=== PATIENT | female | born 1975 | race African-American/Black ===

== ENCOUNTER 2018-05-22 20:12 | Emergency (ER) | payer OTHER ==
[2018-05-22 20:26] VITALS: BMI 40.0
--- NOTE | 2018-05-22 20:27 | PDOC ---
Rapid Medical Evaluation Chief Complaint: Chest Pain Time Seen by Provider: 05/22/18 20:21 Medical Evaluation: Allergies Allergy/AdvReac Type Severity Reaction Status Date / Time codeine Allergy Difficulty Verified 11/10/15 19:34 Breathing 05/22/18 20:21 c/o chest pain and palpitations, dizziness prior to arrival. Pe: patient alert ox3/ breath sounds clear, A: chest pain P: labs ekg chest xray patient to the ER for further management of care, Discharge Disposition - Diagnosis Chest pain Qualifiers: Chest pain type: unspecified Qualified Code(s): R07.9 - Chest pain, unspecified - Referrals - Patient Instructions - Post Discharge Activity
[2018-05-22 20:56] LABS: BASO % 0.6 % (0-2.0); EOS % 1.5 % (0-4.5); HEMATOCRIT 43.2 % (32.4-45.2); HEMOGLOBIN 14.7 GM/dL (10.7-15.3); LYMPH % 36.4 % (8-40); MCH 31.2 pg (25.7-33.7); MEAN CELL VOLUME 91.6 fl (80-96); MEAN PLT VOLUME 8.6 fl (7.5-11.1); MONO % 5.4 % (3.8-10.2); NEUT % 56.1 % (42.8-82.8); PLATELET COUNT 299 K/MM3 (134-434); RBC 4.71 M/mm3 (3.60-5.2); RDW 15.2 % (11.6-15.6); WHITE BLOOD COUNT 6.8 K/mm3 (4.0-10.0)
[2018-05-22 20:57] LABS: URINE APPEARANCE CLEAR; URINE BILIRUBIN NEGATIVE (<2.0 mg/dL); URINE COLOR COLORLESS; URINE GLUCOSE (UA) NEGATIVE (NEGATIVE); URINE KETONE NEGATIVE (NEGATIVE); URINE LEUK ESTERASE NEGATIVE (NEGATIVE); URINE NITRITE NEGATIVE (NEGATIVE); URINE PROTEIN NEGATIVE (NEGATIVE); URINE UROBILINOGEN NEGATIVE mg/dL (0.2-1.0)
[2018-05-22 21:08] LABS: EPI CELLS RARE /HPF (FEW); URINE BACTERIA RARE /hpf (NONE SEEN)
--- NOTE | 2018-05-22 21:11 | PDOC ---
History of Present Illness - General Chief Complaint: Chest Pain Stated Complaint: CHEST PAIN Time Seen by Provider: 05/22/18 20:21 History Source: Patient Exam Limitations: No Limitations - History of Present Illness Initial Comments: 05/22/18 21:24 42 year old female with PMH pre-diabetes presented to ED for palpitations and chest pain x1 hour. Pt stated she was sitting down in a chair looking at instagram, saw a funny picture, then felt her heart race and chest pain. She stated her pain is substernal, pressure, nonradiating, no alleviating or aggravating factors. She admitted to shortness of breath. She stated her symptoms have improved but not resolved since their initial presentation. Allergies: Codeine Past History - Past Medical History Allergies/Adverse Reactions: Allergies Allergy/AdvReac Type Severity Reaction Status Date / Time codeine Allergy Difficulty Verified 11/10/15 19:34 Breathing Home Medications: Ambulatory Orders Potassium Chloride 40 meq PO BID #6 tablet.er 05/23/18 COPD: No - Immunization History Immunization Up to Date: No - Suicide/Smoking/Psychosocial Hx Smoking History: Never smoked Have you smoked in the past 12 months: No Information on smoking cessation initiated: No Hx Alcohol Use: No Drug/Substance Use Hx: No Substance Use Type: None Review of Systems - Review of Systems Able to Perform ROS?: Yes Comments:: 05/22/18 21:25 General: denied fever, chills, generalized weakness. HEENT: denied sore throat, rhinorrhea, ear pain. Heart: admitted to chest pain, palpitations. denied syncope, diaphoresis. Respiratory: admitted to shortness of breath. denied cough, sputum production, hemoptysis. Abdomen: denied abdominal pain, nausea, vomiting, diarrhea, constipation, blood in stool. : denied dysuria, increased urinary frequency, hematuria, urinary incontinence , flank pain. Back: denied back pain. Musculoskeletal: denied joint pain, muscle pain, joint swelling. Neurological: denied headache, dizziness, numbness, tingling, weakness. Skin: denied rash, laceration, abrasion. *Physical Exam - Vital Signs Last Vital Signs Temp Pulse Resp BP Pulse Ox 97.7 F 90 98 H 103/86 100 05/22/18 20:23 05/22/18 20:23 05/22/18 20:23 05/22/18 20:23 05/22/18 20:23 - Physical Exam Comments: 05/22/18 21:26 Constitutional: Well-nourished, Well-developed, appearing stated age. obese. HEENT: head is normocephalic, atraumatic. EOMI. PERRLA. Neck: supple. Full ROM. Heart: regular rhythm. no murmurs, rubs or gallops. Lungs: clear to auscultation bilaterally. no crackles, rhonchi or wheezing. no stridor. Abdomen: soft, nontender. normal bowel sounds. no rebound, guarding, masses. Extremities: peripheral pulses intact. no lower extremity edema. Neurological: CN 2-12 grossly intact. moves all four extremities. Psych: awake, alert, oriented x3. follows commands. answers questions appropriately. Moderate Sedation - Procedure Monitoring Vital Signs: Procedure Monitoring Vital Signs Temperature 97.7 F 05/22/18 20:23 Pulse Rate 90 05/22/18 20:23 Respiratory Rate 98 H 05/22/18 20:23 Blood Pressure 103/86 05/22/18 20:23 O2 Sat by Pulse Oximetry (%) 100 05/22/18 20:23 ED Treatment Course - LABORATORY CBC & Chemistry Diagram: 05/22/18 20:40 05/22/18 23:20 - ADDITIONAL ORDERS Additional order review: Laboratory Results 05/22/18 20:36 Urine Color Colorless Urine Appearance Clear Urine pH 8.0 D Ur Specific Carlotta 1.003 L Urine Protein Negative Urine Glucose (UA) Negative Urine Ketones Negative Urine Blood 1+ H Urine Nitrite Negative Urine Bilirubin Negative Urine Urobilinogen Negative Ur Leukocyte Esterase Negative Urine WBC (Auto) 1 Urine RBC (Auto) None Ur Epithelial Cells Rare Urine Bacteria Rare 05/22/18 20:40 RBC 4.71 MCV 91.6 MCHC 34.0 RDW 15.2 MPV 8.6 Neutrophils % 56.1 Lymphocytes % 36.4 Monocytes % 5.4 Eosinophils % 1.5 Basophils % 0.6 Medical Decision Making - Medical Decision Making 05/22/18 21:27 42 year old female with above PMH presented to ED for chest pain/palpitations associated with shortness of breath. Initial Vital Signs Temp Pulse Resp BP Pulse Ox 97.7 F 90 98 H 103/86 100 05/22/18 20:23 05/22/18 20:23 05/22/18 20:23 05/22/18 20:23 05/22/18 20:23 Afebrile. No tachycardia. Respirations error in charting. Mild hypotension. No hypoxia on room air. Labs ordered: CBC, CMP, trop, mag, phos, TSH, serum Imaging ordered: CXR Medications ordered: normal saline bolus 1000 cc EKG performed at 2018: rate 90, regular rhythm, normal axis, 2 PVCs, QTc 511, no acute ST changes. EKG performed 11/01/2002: rate 96, regular rhythm, normal axis, no PVCs, QTc 419 , RSR in V2, no acute ST changes. CXR report: no acute lung disease. CBC WBC 6.8 K/mm3 (4.0-10.0) 05/22/18 20:40 RBC 4.71 M/mm3 (3.60-5.2) 05/22/18 20:40 Hgb 14.7 GM/dL (10.7-15.3) 05/22/18 20:40 Hct 43.2 % (32.4-45.2) 05/22/18 20:40 MCV 91.6 fl (80-96) 05/22/18 20:40 MCH 31.2 pg (25.7-33.7) 05/22/18 20:40 MCHC 34.0 g/dl (32.0-36.0) 05/22/18 20:40 RDW 15.2 % (11.6-15.6) 05/22/18 20:40 Plt Count 299 K/MM3 (134-434) 05/22/18 20:40 MPV 8.6 fl (7.5-11.1) 05/22/18 20:40 Absolute Neuts (auto) 3.8 K/mm3 (1.5-8.0) 05/22/18 20:40 Neutrophils % 56.1 % (42.8-82.8) 05/22/18 20:40 Lymphocytes % 36.4 % (8-40) 05/22/18 20:40 Monocytes % 5.4 % (3.8-10.2) 05/22/18 20:40 Eosinophils % 1.5 % (0-4.5) 05/22/18 20:40 Basophils % 0.6 % (0-2.0) 05/22/18 20:40 Nucleated RBC % 0 % (0-0) 05/22/18 20:40 No leukocytosis. No anemia. Urine Test Results Urine Color Colorless 05/22/18 20:36 Urine Appearance Clear 05/22/18 20:36 Urine pH 8.0 (5.0-8.0) D 05/22/18 20:36 Ur Specific Carlotta 1.003 (1.010-1.035) L 05/22/18 20:36 Urine Protein Negative (NEGATIVE) 05/22/18 20:36 Urine Glucose (UA) Negative (NEGATIVE) 05/22/18 20:36 Urine Ketones Negative (NEGATIVE) 05/22/18 20:36 Urine Blood 1+ (NEGATIVE) H 05/22/18 20:36 Urine Nitrite Negative (NEGATIVE) 05/22/18 20:36 Urine Bilirubin Negative (<2.0 mg/dL) 05/22/18 20:36 Ur Leukocyte Esterase Negative (NEGATIVE) 05/22/18 20:36 Ur Epithelial Cells Rare /HPF (FEW) 05/22/18 20:36 Urine Bacteria Rare /hpf (NONE SEEN) 05/22/18 20:36 No UTI. 05/22/18 21:39 Lab reported CMP hemolyzed, redraw sent to lab. 05/22/18 21:51 Vital Signs Temperature 97.7 F 05/22/18 20:23 Pulse Rate 85 05/22/18 21:41 Respiratory Rate 19 05/22/18 21:41 Blood Pressure 149/107 H 05/22/18 21:41 O2 Sat by Pulse Oximetry (%) 100 05/22/18 21:41 Vital signs were repeated with no treatment. No tachycardia. No tachypnea. Mild hypertension. No hypoxia on room air. 05/22/18 22:05 CMP Sodium 140 mmol/L (136-145) 05/22/18 21:19 Potassium 2.8 mmol/L (3.5-5.1) L* 05/22/18 21:19 Chloride 104 mmol/L (98-107) 05/22/18 21:19 Carbon Dioxide 26 mmol/L (21-32) 05/22/18 21:19 Anion Gap 10 MMOL/L (8-16) 05/22/18 21:19 BUN 15 mg/dL (7-18) 05/22/18 21:19 Creatinine 0.7 mg/dL (0.55-1.3) 05/22/18 21:19 Creat Clearance w eGFR > 60 (>60) 05/22/18 21:19 Random Glucose 88 mg/dL (74-106) 05/22/18 21:19 Calcium 8.4 mg/dL (8.5-10.1) L 05/22/18 21:19 Phosphorus 3.3 mg/dL (2.5-4.9) 05/22/18 21:19 Magnesium 2.2 mg/dL (1.8-2.4) 05/22/18 21:19 Total Bilirubin 0.4 mg/dL (0.2-1) 05/22/18 21: AST 19 U/L (15-37) 05/22/18 21: ALT 28 U/L (13-61) 05/22/18 21:19 Alkaline Phosphatase 113 U/L (45-117) 05/22/18 21:19 Creatine Kinase Cancelled 05/22/18 20:40 Troponin I < 0.02 ng/ml (0.00-0.05) 05/22/18 21:19 Total Protein 7.8 g/dl (6.4-8.2) 05/22/18 21: Albumin 3.4 g/dl (3.4-5.0) 05/22/18 21:19 TSH 0.55 uIU/ml (0.358-3.74) 05/22/18 21:19 Serum , Qual Negative 05/22/18 21:41 Hypokalemia with normal Mag/Phosphate. No RIK. No transaminitis. Normal troponin. Normal TSH. Serum testing negative. Medications ordered: KCL 40 mEq PO, KCL 10 mEq IV 05/22/18 22:09 Pt informed of results, now stated last summer her potassium was 2.1 secondary to chlorthalidone use. Pt stated she in not on any medications. Pt informed to follow up with Endocrinology, given multiple referrals in [place] paperwork. 05/22/18 23:00 Pt refused IV potassium secondary to pain. Will repeat troponin and potassium together. 05/23/18 00:03 Repeat troponin normal. 05/23/18 00:21 Repeat potassium 2.9. Medications ordered: Kcl 40 mEq PO Pt informed of risks of not having IV potassium, she stated she understands. Discharge medications: 40 mEq KcL PO BID x3 days Pt informed to follow up with PCP or ED at 48 hours for repeat potassium level. *DC/Admit/Observation/Transfer Diagnosis at time of Disposition: Hypokalemia Chest pain Qualifiers: Chest pain type: unspecified Qualified Code(s): R07.9 - Chest pain, unspecified - Discharge Dispostion Disposition: HOME Condition at time of disposition: Stable Decision to Admit order: No - Prescriptions Prescriptions: Potassium Chloride 40 meq PO BID #6 tablet.er - Referrals Referrals: Armani Francisco [Primary Care Provider] - Domingo Camacho [Staff Physician] - Tonio Guzmán MD [Staff Physician] - Justus Faulkner MD [Staff Physician] - Nela Gunn MD [Staff Physician] - Lita Fairbanks MD [Staff Physician] - Binaka Long MD [Staff Physician] - - Patient Instructions Printed Discharge Instructions: DI for Hypokalemia Additional Instructions: Your potassium was low. You were given oral potassium, but you refused the IV potassium. This will mean it will take longer to raise your potassium. You need to have your potassium level rechecked in 48 hours. If you cannot secure an appointment on Sunday with your PCP, return to the Emergency Department to have this level rechecked. I have sent a prescription to your pharmacy for potassium. Pick it up as soon as possible and take as advised on label. 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 I have provided you with multiple referrals. Bring all the paperwork given to you today to your appointment. Return to the Emergency Department for palpitations, chest pain, shortness of breath, lightheadedness like you may pass out, passing out, or any other new, worsening or concerning symptoms. - Post Discharge Activity Forms/Work/School Notes: Back to Work
[2018-05-22 21:14] LABS: INR 1.07 (0.83-1.09); PROTHROMBIN TIME (PATIENT) 12.6 SEC (9.7-13.0)
--- NOTE | 2018-05-22 21:15 | PDOC ---
Attending Attestation - HPI HPI: 05/22/18 21:37 The patient is a 42-year-old female, with a past medical history of prediabetes , who presents to the ED with chest pain and palpitations that began 1 hour prior to arrival. Patient states that she was sitting down and scrolling through instagram when her symptoms began. Her pain is located in the substernal chest region and she describes the pain as pressure-like in sensation , nonradiating, with no exacerbating or alleviating factors, and accompanied by shortness of breath. Symptoms have improved while in the ED, but they have not resolved. The patient denies any fevers, chills, nausea, vomiting, diarrhea, or abdominal pain. Denies any headache, lightheadedness, or changes in sensation. Allergies: Codeine PCP: Maryam - Physicial Exam PE: 05/22/18 21:38 Agree with resident's note. <Deyanira Lang - Last Filed: 05/22/18 21:39> - Resident Resident Name: Nelia Champion - ED Attending Attestation I have performed the following: I have examined & evaluated the patient, The case was reviewed & discussed with the resident, I agree w/resident's findings & plan - Medical Decision Making 05/23/18 01:24 Is 42-year-old female with history of chronic hypokalemia with palpitations Potassium initially 2.8, it was recommended to patient to receive both by mouth and IV replacement, she has refused IV dosing She understands at this level needs to be rechecked in 48 hours without fail and should she develop any worsening symptoms to return to the emergency department immediately She will be discharged with 40 mg twice a day 3 days. <Elaine Carrillo - Last Filed: 05/23/18 01:28> Attestations - Attestations 05/22/18 21:38 Documentation prepared by Deyanira Lang, acting as registered medical transcriptionist for Elaine Carrillo DO. <Deyanira Lang - Last Filed: 05/22/18 21:39>
[2018-05-22] MEDS ORDERED: SODIUM CHLORIDE 1,000 ML IV STA (21:28)
[2018-05-22 21:58] LABS: ALBUMIN 3.4 g/dl (3.4-5.0); ALK PHOS 113 U/L (45-117); ANION GAP 10 MMOL/L (8-16); BILIRUBIN,TOTAL 0.4 mg/dL (0.2-1); BLOOD UREA NITROGEN 15 mg/dL (7-18); CALCIUM 8.4 mg/dL (8.5-10.1); CHLORIDE 104 mmol/L (98-107); CO2 26 mmol/L (21-32); CREATININE 0.7 mg/dL (0.55-1.3); GLUCOSE,RANDOM 88 mg/dL (74-106); MAGNESIUM 2.2 mg/dL (1.8-2.4); SGOT/AST 19 U/L (15-37); SGPT/ALT 28 U/L (13-61); SODIUM 140 mmol/L (136-145); TOT PROT 7.8 g/dl (6.4-8.2)
[2018-05-22 22:01] LABS: PHOSPHOROUS 3.3 mg/dL (2.5-4.9); POTASSIUM 2.8 mmol/L (3.5-5.1)
[2018-05-22] MEDS ORDERED: POTASSIUM CHLORIDE ORAL LIQUID 20 MEQ/15 ML PO ONE (22:04)
[2018-05-22] MEDS ORDERED: POTASSIUM CHLORIDE ORAL LIQUID 20 MEQ/15 ML ONE (22:09)
[2018-05-22] MEDS ORDERED: POTASSIUM CHLORIDE TABS 20 MEQ TABLET.ER (FP) PO ONE (22:15)
[2018-05-22] MEDS ORDERED: POTASSIUM CHLORIDE TABS 10 MEQ TABLET.ER (FP) PO ONE (22:16)
[2018-05-22] MEDS ORDERED: KCL 10 MEQ IVPB 10 MEQ/100 ML INFUS.BAG IVPB SCH (22:45)
[2018-05-22] MEDS ORDERED: KCL 10 MEQ IVPB 10 MEQ/100 ML INFUS.BAG IVPB ONE (22:46)
[2018-05-23 00:19] VITALS: BP 135/92; PULSE 82; TEMP 98.4
[2018-05-23 00:19] LABS: POTASSIUM 2.9 mmol/L (3.5-5.1)
[2018-05-23] MEDS ORDERED: POTASSIUM CHLORIDE TABS 10 MEQ TABLET.ER (FP) PO ONE (00:19)
[2018-05-23] MEDS ORDERED: POTASSIUM CHLORIDE TABS 20 MEQ TABLET.ER (FP) PO ONE (00:32)
--- NOTE | 2018-05-23 14:02 | EKG ---
Test Reason : Blood Pressure : / mmHG Vent. Rate : 090 BPM Atrial Rate : 090 BPM P-R Int : 176 ms QRS Dur : 090 ms QT Int : 418 ms P-R-T Axes : 051 030 049 degrees QTc Int : 511 ms SINUS RHYTHM WITH OCCASIONAL PREMATURE VENTRICULAR COMPLEXES POSSIBLE LEFT ATRIAL ENLARGEMENT PROLONGED QT ABNORMAL ECG WHEN COMPARED WITH ECG OF 01-NOV-2002 13:39, PREMATURE VENTRICULAR COMPLEXES ARE NOW PRESENT QT HAS LENGTHENED Confirmed by KENNEDY JAVIER, AARON ([id number]) on 05/23/2018 2:01:42 PM Referred By: Confirmed By:ARAON BENAVIDES MD
== END 2018-05-23 00:46 | disposition home or self-care (01) ==
LOC: JER 20:12
PROC: 3E0337Z Introduction of Electrolytic and Water Balance Substance into Peripheral Vein, Percutaneous Approach (ICD-10-PCS; principal; 2018-05-22)
DX: E87.6 Hypokalemia (principal); R07.9 Chest pain, unspecified; R73.03 Prediabetes
CPT/HCPCS: 36415; 71046-TC-FY; 80053; 81003; 81015; 83735; 84100; 84132; 84443; 84484; 84703; 85025; 85610; 93005; 93010; 99282-25; J7030